=== PATIENT | female | born 1985 | race Caucasian/White ===

== ENCOUNTER → 2018-09-04 14:00 | Outpatient (CLI) | payer OTHER, SELFPAY ==
--- NOTE | 2018-09-04 14:05 | DI.US.S_ITS ---
PROCEDURE: US OB <= 14 WEEKS FETUS INDICATIONS: DATING / INITIAL ULTRASOUND OUTSIDE/PRIOR DATING DATA: Last menstrual period (LMP): 07/15/18. LMP-based estimated date of delivery (MARICHUY): 04/21/19. First dating scan (date and location): 09/04/18. Estimated date of delivery (MARICHUY) from first dating scan: 04/21/19. TECHNIQUE: Real-time scanning was performed of the fetus and maternal pelvic organs, with image documentation. Endovaginal scanning was also performed to better visualize the fetus and maternal ovaries. COMPARISON: None. FINDINGS: Embryo: [place]-rump length measures 12 mm corresponding to 7 weeks 2 days. Embryonic heart rate measures 157 beats per minute. Measurement variability in dating: +/- 4 weeks by LMP, +/- 7 days by mean sac diameter (use before 6 weeks gestation if crown-rump length not able to be measured), +/- 5 days by crown-rump length (up to 8 weeks 6 days gestation), +/- 7 days by crown-rump length (up to 13 weeks 6 days gestation). Maternal organs: Ovaries are within normal limits. Limited images through the kidneys demonstrate no hydronephrosis. IMPRESSION: Seven-week 2 day single living IUP. Dictated by: Buck ARANDA Interpreted: Danielito Dugan MD on 09/04/2018 at 15:36 Approved by: Danielito Dugan M.D. on 09/04/2018 at 16:31
[2018-09-04 14:26] LABS: Add Manual Diff / Slide Review NO; Basophils Absolute Auto 100 /uL (0-100); Eosinophils Absolute Auto 200 /uL (0-450); Eosinophils Percent Auto 1.7 % (2-4); Hematocrit 40.6 % (36-46); Hemoglobin 14.3 g/dL (12.0-16.0); Lymphocytes Absolute Auto 2300 /uL (1100-4500); Lymphocytes Percent Auto 25.6 % (25-40); Mean Corpuscular HGB Conc 35.3 % (30-36); Mean Corpuscular Hemoglobin 29.8 PG (26-34); Mean Corpuscular Volume 84.4 fL (80-100); Monocytes Absolute Auto 600 /uL (0-900); Monocytes Percent Auto 6.5 % (3-14); Neutrophils Absolute Auto 6000 /uL (1500-7000); Neutrophils Percent Auto 65.2 % (50-75); Platelet Count 265 X10^3/uL (150-400); Red Cell Distribution Width 12.5 % (11.6-14.8); White Blood Cell Count 9.1 X10^3/uL (4.5-11.0)
[2018-09-04 15:58] LABS: Appearance Urine UA CLEAR; Bilirubin Urine UA NEGATIVE (NEGATIVE); Color Urine UA YELLOW; Glucose Urine UA NEGATIVE (Negative); Ketones Urine UA NEGATIVE (NEGATIVE); Leukocyte Esterase Urine UA NEGATIVE (NEGATIVE); Nitrite Urine UA NEGATIVE (Negative); Occult Blood Urine UA TRACE-LYSED (Negative); Protein Urine UA NEGATIVE (Negative); Specific Gravity Urine UA 1.025 (1.000-1.035); Urobilinogen Urine UA 0.2 E.U./dL (0.2); pH Urine UA 5.5 (4.5-8.0)
[2018-09-04 16:10] LABS: Hepatitis B Surface Antigen NEGATIVE s/c (NEGATIVE)
[2018-09-04 16:22] LABS: HIV 1 and 2 Antibody NEGATIVE (NEGATIVE); Hep C Virus Ab w/Reflex Quant NEGATIVE s/c (NEGATIVE)
[2018-09-07 05:41] LABS: RPR Screen Nonreactive (Nonreactive)
== END ==
PROVIDERS: Family Provider Family Medicine; PCP Family Medicine; Visit Provider Family Medicine
DX: Z34.01 Encounter for supervision of normal first pregnancy, first trimester (principal); Z3A.01 Less than 8 weeks gestation of pregnancy
CPT/HCPCS: 36415; 76801; 80055; 81003; 86703; 86787; 86803; 86850; 86900; 86901; 87086

== ENCOUNTER → 2018-11-13 15:29 | Outpatient (CLI) | payer OTHER, SELFPAY ==
[2018-11-20 16:30] LABS: AFP, Serum 34.8 ng/mL; Calc Gestational Age 17.3; Cigarette Smoker NOT GIVEN; Donated Egg NOT GIVEN; Donor Egg Age NOT GIVEN; Estriol, Free 0.95 ng/mL; Inhibin A, Dimeric 161 pg/mL; Maternal Ethnicity NOT GIVEN; Maternal Weight 188 lbs; Number of Fetuses NOT GIVEN; Previous Pregnancy Down Syndro NOT GIVEN; hCG, MoM 0.74; hCG, Serum 17.5 IU/mL
== END ==
PROVIDERS: Family Provider Family Medicine; Visit Provider Family Medicine
DX: Z34.02 Encounter for supervision of normal first pregnancy, second trimester (principal); Z3A.17 17 weeks gestation of pregnancy
CPT/HCPCS: 36415; 82105; 82677; 84702; 86336

== ENCOUNTER → 2018-12-03 14:38 | Outpatient (CLI) | payer OTHER, SELFPAY ==
--- NOTE | 2018-12-03 14:39 | DI.US.S_ITS ---
PROCEDURE: US OB >= 14 WEEKS FETUS INDICATIONS: ANATOMY SCREENING OUTSIDE/PRIOR DATING DATA: Last menstrual period (LMP): 07/15/18. LMP-based estimated date of delivery (MARICHUY): 04/21/19. First dating scan (date and location): 09/04/18. Estimated date of delivery (MARICHUY) from first dating scan: 04/21/19. TECHNIQUE: Real-time scanning was performed of the fetus, with image documentation and biometric measurements. Endovaginal scanning: Not requested. COMPARISON: [facility], OB <= 14 WEEKS FETUS, 09/04/2018, 14:57. FINDINGS: General: A single living intrauterine gestation is present. Presentation: Variable. Placenta: Placental position is anterior, without previa. Amniotic fluid index: 13.9 cm, normal range is 5-24 cm. heart rate: 136 beats per minute. Maternal cervical canal: 2.9 cm long. Normal lower limit is 2.5 cm. biometrics: Biparietal diameter: 20 weeks 3 days Head circumference: 20 weeks 1 day Abdominal circumference: 20 weeks 5 days Femur length: 19 weeks 5 days Estimated gestational age from initial scan: 20 weeks 1 day Composite gestational age from present scan: 20 weeks 2 days Estimated weight and percentile: 339 g; 49 percentile Measurement variability for biometric dating: +/- 7 days from 14 weeks to 15 weeks 6 days gestation, +/- 10 days from 16 weeks to 21 weeks 6 days gestation, +/- 2 weeks from 22 weeks to 27 weeks 6 days gestation, +/- 3 weeks for 28 weeks gestation or later. weight reference: 4500 g or EFW >90/95% is considered macrosomia or large for gestational age. EFW <10% is small for gestational age. EFW 5% or less is considered intra-uterine growth restriction. Anatomic survey: Neuro: Ventricles are non-dilated at less than 10 mm. Cisterna magna is normal at 3-11 mm. Cerebellum is normal in size and morphology. Nuchal skin fold: Normal at less than 6 mm between 14-21 weeks gestational age. Face: Nose and lips, facial profile are normal. Spine: No evidence for spina bifida. Heart: 4-chambered heart is present, with normal ventricular outflow tracts. Diaphragm: Diaphragm is intact. Stomach: Left-sided stomach is present. Kidneys: No hydronephrosis. Normal is less than 5 mm in 2nd trimester, less than 7 mm in 3rd trimester. Cord: 3-vessel cord has orthotopic insertion. Bladder: Normal in size. Extremities: All 4 extremities identified. IMPRESSION: 1. Single living IUP redemonstrated and interval growth is normal. 2. Normal anatomic survey. Dictated by: Buck Sevilla [facility] Interpreted: Isaiah Sandy MD on 12/03/2018 at 16:35 Approved by: Isaiah Sandy M.D. on 12/03/2018 at 22:41
== END ==
PROVIDERS: Family Provider Family Medicine; PCP Family Medicine; Visit Provider Family Medicine
DX: Z36.89 Encounter for other specified antenatal screening (principal); Z3A.20 20 weeks gestation of pregnancy
CPT/HCPCS: 76811

== ENCOUNTER → 2018-12-17 11:49 | Outpatient (CLI) | payer OTHER, SELFPAY ==
[2018-12-17 17:41] LABS: Urine N gonorrhoeae NOT DETECTED
[2018-12-17 17:52] LABS: Urine Chlamydia NOT DETECTED
== END ==
PROVIDERS: Family Provider Family Medicine; PCP Family Medicine; Visit Provider Family Medicine
DX: Z11.3 Encounter for screening for infections with a predominantly sexual mode of transmission (principal); Z11.8 Encounter for screening for other infectious and parasitic diseases; Z3A.22 22 weeks gestation of pregnancy
CPT/HCPCS: 87491; 87591

== ENCOUNTER → 2019-01-27 09:47 | Outpatient (CLI) | payer OTHER, SELFPAY ==
[2019-01-27 11:17] LABS: Hematocrit 36.5 % (36-46); Hemoglobin 12.7 g/dL (12.0-16.0)
[2019-01-27 11:38] LABS: GTT (PREG) 1 Hour PP 50gm Dose 111 mg/dL (76-139)
== END ==
PROVIDERS: PCP Family Medicine; Visit Provider Family Medicine
DX: Z34.02 Encounter for supervision of normal first pregnancy, second trimester (principal); Z3A.26 26 weeks gestation of pregnancy
CPT/HCPCS: 82950; 85014; 85018

== ENCOUNTER 2019-03-11 12:15 | Outpatient (CLI) | payer OTHER, SELFPAY ==
[2019-03-11 12:38] LABS: Add Manual Diff / Slide Review NO; Basophils Absolute Auto 100 /uL (0-100); Basophils Percent Auto 0.5 % (0-2); Eosinophils Absolute Auto 100 /uL (0-450); Eosinophils Percent Auto 0.8 % (2-4); Hematocrit 37.5 % (36-46); Hemoglobin 13.2 g/dL (12.0-16.0); Lymphocytes Absolute Auto 2000 /uL (1100-4500); Lymphocytes Percent Auto 15.6 % (25-40); Mean Corpuscular HGB Conc 35.2 % (30-36); Mean Corpuscular Hemoglobin 30.5 PG (26-34); Mean Corpuscular Volume 86.7 fL (80-100); Monocytes Absolute Auto 600 /uL (0-900); Monocytes Percent Auto 4.9 % (3-14); Neutrophils Absolute Auto 10100 /uL (1500-7000); Neutrophils Percent Auto 78.2 % (50-75); Platelet Count 219 X10^3/uL (150-400); Red Blood Cell Count 4.32 X10^6/uL (4.0-5.2); Red Cell Distribution Width 12.9 % (11.6-14.8)
[2019-03-11 12:51] LABS: Alanine Aminotransferase 27 IU/L (9-52); Albumin 3.6 g/dL (3.5-5.0); Albumin Globulin Ratio 1.2 (1.0-2.8); Alkaline Phosphatase 93 U/L (38-126); Aspartate Aminotransferase 18 IU/L (14-36); BUN Creatinine Ratio 12.5 (6-22); Bilirubin Total 0.4 mg/dL (0.2-1.3); Blood Urea Nitrogen 5 mg/dL (7-17); Calcium 9.3 mg/dL (8.4-10.2); Carbon Dioxide 25 mmol/L (22-32); Chloride 104 mmol/L (98-107); Estimated Glomerular Filt Rate > 60.0 mL/min (>60); Globulin 2.9 g/dL (1.7-4.1); Glucose 106 mg/dL (70-100); HEMOLYSIS < 15 (0-50); Potassium 3.8 mmol/L (3.4-5.1); Sodium 136 mmol/L (137-145); Total Protein 6.5 g/dL (6.3-8.2)
--- NOTE | 2019-03-11 16:38 | PM.OBTRLD ---
Visit Information Visit Information Date of evaluation: 03/11/19 Primary OB Provider: Kezia Mi Reason for Evaluation: Yes non-stress test non-stress test reason: hypertension/pre-eclampsia Comments/Additional reasons for admission: Elevated BP in clinic x3, pt denies RAMIREZ, vision changes, abdominal pain or LE edema. Did have coffee prior to appointment. [facility] Medical History Abnormal Pap smear of cervix (Chronic ~09/2008) Human papilloma virus (Chronic ~2007) Family History Grandmother Age: 75 Diabetes mellitus Hypertension RA (rheumatoid arthritis) Mother Age: 53 Hypertension Grandfather No problems noted. Social History Smoking Status: Former smoker Family History Grandmother Age: 75 Diabetes mellitus Hypertension RA (rheumatoid arthritis) Mother Age: 53 Hypertension Grandfather No problems noted. Social History Smoking Status: Former smoker Exam Vital Signs (past 8 hours): Temperature 36.8? blood pressure 118/58 heart rate 74 Objective Labs Result Diagrams: 03/11/19 12:25 03/11/19 12:25 Labs: Laboratory Results - last 24 hr 03/11/19 03/11/19 12:25 12:25 WBC 13.0 H RBC 4.32 Hgb 13.2 Hct 37.5 MCV 86.7 MCH 30.5 MCHC 35.2 RDW 12.9 Plt Count 219 Neut % (Auto) 78.2 H Lymph % (Auto) 15.6 L [place] % (Auto) 4.9 Eos % (Auto) 0.8 L Baso % (Auto) 0.5 Neut # (Auto) 82436 H Lymph # (Auto) 2000 [place] # (Auto) 600 Eos # (Auto) 100 Baso # (Auto) 100 Sodium 136 L Potassium 3.8 Chloride 104 Carbon Dioxide 25 BUN 5 L Creatinine 0.40 L Estimated GFR > 60.0 BUN/Creatinine Ratio 12.5 Glucose 106 H Calcium 9.3 Total Bilirubin 0.4 AST 18 ALT 27 Alkaline Phosphatase 93 Total Protein 6.5 Albumin 3.6 Globulin 2.9 Albumin/Globulin Ratio 1.2 Evaluation Evaluation Baseline heart rate: 120 Variability: Moderate (11-25) monitor accelerations: Present monitor decelerations: Absent Category of Tracing: I Laboratory results: Laboratory Tests 03/11/19 03/11/19 12:25 12:25 WBC 13.0 H RBC 4.32 Hgb 13.2 Hct 37.5 MCV 86.7 MCH 30.5 MCHC 35.2 RDW 12.9 Plt Count 219 Neut % (Auto) 78.2 H Lymph % (Auto) 15.6 L [place] % (Auto) 4.9 Eos % (Auto) 0.8 L Baso % (Auto) 0.5 Neut # (Auto) 33769 H Lymph # (Auto) 2000 [place] # (Auto) 600 Eos # (Auto) 100 Baso # (Auto) 100 Sodium 136 L Potassium 3.8 Chloride 104 Carbon Dioxide 25 BUN 5 L Creatinine 0.40 L Estimated GFR > 60.0 BUN/Creatinine Ratio 12.5 Glucose 106 H Calcium 9.3 Total Bilirubin 0.4 AST 18 ALT 27 Alkaline Phosphatase 93 Total Protein 6.5 Albumin 3.6 Globulin 2.9 Albumin/Globulin Ratio 1.2 Diagnosis, Plan/Disposition Final Diagnosis (1) 34 weeks gestation of : Current Visit: No Status: Acute Plan/Disposition Plan: Blood pressure was normal in the center. NST reactive. Preeclampsia labs normal. Patient will follow up in clinic as scheduled. Return precautions reviewed. OB Disposition: home
== END 2019-03-11 13:16 | disposition home or self-care (01) ==
LOC: OB 03-16 09:29
PROVIDERS: PCP Family Medicine; Visit Provider Family Medicine
DX: O26.893 Other specified pregnancy related conditions, third trimester (principal); R03.0 Elevated blood-pressure reading, without diagnosis of hypertension; Z3A.34 34 weeks gestation of pregnancy
CPT/HCPCS: 59025; 80053; 85025; G0378; G0379

== ENCOUNTER → 2019-03-25 11:04 | Outpatient (CLI) | payer OTHER, SELFPAY ==
[2019-03-26 13:35] LABS: Strep Grp B PCR NEG for Grp B Strep
== END ==
PROVIDERS: PCP Family Medicine; Visit Provider Family Medicine
DX: Z34.90 Encounter for supervision of normal pregnancy, unspecified, unspecified trimester (principal); Z3A.36 36 weeks gestation of pregnancy
CPT/HCPCS: 87653

== ENCOUNTER 2019-04-27 12:12 | Outpatient (CLI) | payer OTHER, SELFPAY ==
--- NOTE | 2019-04-27 14:02 | PM.OBTRLD ---
Visit Information Visit Information Date of evaluation: 04/27/19 Primary OB Provider: Kezia Mi Reason for Evaluation: Yes non-stress test non-stress test reason: other (postdates) Vital Signs Vital Signs: Temperature 36.4? blood pressure 128/79 heart rate 79 PFSH Medical History Abnormal Pap smear of cervix (Chronic ~09/2008) Human papilloma virus (Chronic ~2007) Family History Grandmother Age: 75 Diabetes mellitus Hypertension RA (rheumatoid arthritis) Mother Age: 53 Hypertension Grandfather No problems noted. Social History Smoking Status: Former smoker Family History Grandmother Age: 75 Diabetes mellitus Hypertension RA (rheumatoid arthritis) Mother Age: 53 Hypertension Grandfather No problems noted. Social History Smoking Status: Former smoker Evaluation Evaluation Baseline heart rate: 135 Variability: Moderate (11-25) monitor accelerations: Present monitor decelerations: Absent Uterine Contraction Intensity: Mild Category of Tracing: I Diagnosis, Plan/Disposition Final Diagnosis (1) 40 weeks gestation of : Current Visit: No Status: Acute Plan/Disposition Plan: 33-year-old at 40 weeks and 6 days gestation. NST done for postdates. NST reactive. She is scheduled for induction on 05/04/19 undelivered by then. OB Disposition: home
== END 2019-04-27 13:25 | disposition home or self-care (01) ==
LOC: LABOR 14:28 → OB 04-29 09:07
PROVIDERS: PCP Family Medicine; Visit Provider Family Medicine
DX: O48.0 Post-term pregnancy (principal); Z3A.40 40 weeks gestation of pregnancy
CPT/HCPCS: 59025; G0378; G0379

== ENCOUNTER 2019-04-30 09:40 | Inpatient (IN) | payer OTHER, SELFPAY ==
--- NOTE | 2019-04-30 13:43 | PM.OBHP.1 ---
OB HPI Date/Time Date of admission: 04/30/19 Date Patient Seen: 04/30/19 Time Patient Seen: 13:00 History of Present Condition Chief complaint: LABOR : 1 Para: 0 Estimated Date of Delivery: 04/21/19 Estimated Gestational Age (weeks): 41w2d Narrative: Lizbet Nguyen is a 33 year old at 41 weeks and 2 days. History of Present care: good care, initiated at week # (10), number of visits (15) and pounds weight gain (47) Dating criteria: LMP confirmed by 1st trimester US Ultrasounds: normal 1st trimester US and normal mid trimester US Preadmission Labs Blood type: B (+) positive -: Antibody screen: negative, GBS status: negative, HBsAG: negative, HIV: negative and RPR/VDLR: negative -: Chlamydia screen: not detected and Gonorrhea screen: not detected -: Rubella: immune and Varicella: immune HCT: 40.6 HCAB: negative Quad screen: Normal Urine: Negative 1 hr GTT: 111 Evaluation Evaluation Baseline heart rate: 130 Variability: Moderate (11-25) monitor accelerations: Present monitor decelerations: Absent Uterine Contraction Intensity: Moderate Category of Tracing: I Cervical dilation (cm): 4 Cervical effacement (%): 90 station: -1 [facility] Medical History Abnormal Pap smear of cervix (Chronic ~09/2008) Human papilloma virus (Chronic ~2007) Family History Grandmother Age: 75 Diabetes mellitus Hypertension RA (rheumatoid arthritis) Mother Age: 53 Hypertension Grandfather No problems noted. Social History Smoking Status: Former smoker Family History Grandmother Age: 75 Diabetes mellitus Hypertension RA (rheumatoid arthritis) Mother Age: 53 Hypertension Grandfather No problems noted. Social History Smoking Status: Former smoker Meds Home Medications and Allergies Home Medications Medication Instructions Recorded Confirmed Type prenat.vits,shon,pxz-kzdk-eqied 1 tab PO DAILY 09/23/18 09/23/18 History Allergies Allergy/AdvReac Type Severity Reaction Status Date / Time penicillin G [PENICILLIN G] Allergy Severe SWELLING Unverified 11/05/17 12:26 Review of Systems Constitutional Constitutional: Denies fever(s) and Denies headache(s) ENT Ears, Nose, Mouth, and Throat: No headache(s) Cardiovascular Cardiovascular: Denies chest pain and Denies shortness of breath Respiratory Respiratory: Denies cough and Denies dyspnea Gastrointestinal Gastrointestinal: Denies change in bowel habits, Denies nausea and Denies vomiting Neurologic Neurologic: Denies headache(s) Exam Const General: healthy appearing and comfortable HENMT Head: normal to inspection Ears: hearing grossly normal bilaterally Nose: external nose normal Face and sinus: normal facial exam Mouth: oral mucosae normal Eyes General: appearance normal, both eyes and all related structures Neck Neck: normal visual inspection Resp Effort & Inspection: normal respiratory effort Auscultation: clear to auscultation bilaterally Cardio Rate: regular rate Rhythm: regular rhythm Heart Sounds: no murmurs GI Other: Gravid External Female Exam: external appearance normal Manual OB Exam: dilated 4, effaced (90) and station -1 Presentation: vertex Estimated Weight (lbs): 7 Back/Spine/Pelvis Back: normal to inspection Skin General: no rashes or lesions noted Extrem General: normal to inspection and no pedal edema Assessment and Plan Assessment and Plan Assessment and Plan narrative: 33-year-old at 41 weeks and 2 days in active labor. GBS negative. Plan - Expectant management - Nitrous per protocol, Pitocin per protocol if desired
[2019-04-30 14:27] LABS: Add Manual Diff / Slide Review NO; Basophils Absolute Auto 100 /uL (0-100); Basophils Percent Auto 0.5 % (0-2); Eosinophils Absolute Auto 0 /uL (0-450); Hematocrit 43.2 % (36-46); Hemoglobin 14.9 g/dL (12.0-16.0); Lymphocytes Absolute Auto 1200 /uL (1100-4500); Lymphocytes Percent Auto 5.8 % (25-40); Mean Corpuscular HGB Conc 34.4 % (30-36); Mean Corpuscular Volume 87.2 fL (80-100); Monocytes Absolute Auto 500 /uL (0-900); Monocytes Percent Auto 2.5 % (3-14); Neutrophils Absolute Auto 17900 /uL (1500-7000); Neutrophils Percent Auto 91.2 % (50-75); Platelet Count 244 X10^3/uL (150-400); Red Blood Cell Count 4.95 X10^6/uL (4.0-5.2); Red Cell Distribution Width 14.1 % (11.6-14.8); White Blood Cell Count 19.7 X10^3/uL (4.5-11.0)
--- NOTE | 2019-04-30 17:59 | PM.OBPNLAB ---
Date/Time Date Patient Seen: 04/30/19 Time Patient Seen: 17:41 Pain Control Pain control: tolerating well and epidural Comments: Was having a lot of back pain until she got an epidural, now comfortable. Pelvic Exam Dilation (cm): 6 Effacement (%): 100 station: -1 Amniotic membrane status: Ruptured (AROM blood tinged fluid) Contractions Monitor mode: External Contraction pattern: Regular Contraction intensity: Strong/Firm Status status: Category l Heart Rate Baseline: 130 Monitor Accelerations: Present Monitor Decelerations: Absent Monitor Variability: Moderate Assessment and Plan Assessment: active labor Plan: continuous present management
[2019-04-30] MEDS: ONDANSETRON 4 MG/2 ML INJ IV (18:05)
[2019-04-30] MEDS: LACTATED RINGERS 1,000 ML 100 ML IV ×2 (19:40→20:18)
--- NOTE | 2019-04-30 23:32 | PM.OBPRVD ---
Labor & Delivery Delivery date: 04/30/19 Intrapartal events: None Cervical ripening method: none Induction method: none Delivery augmentation: rupture of membranes Delivery monitor: external FHT Route of delivery: L&D Laceration Description: Vaginal - 2nd Degree Delivery repair: vicryl Estimated blood loss (mL): 250 Anesthesia type: Epidural Narrative: VAGINAL DELIVERY NOTE Date 04/30/19 BRIEF HISTORY: Patient is a 33-year-old at 40+2 weeks who gave on 04/30/19 at 09/16/50. MARICHUY: 04/21/19 Hospital problems: 41 weeks STAGE I: Labor Patient presented to the center in active labor. Contractions began at approximately 5:00 a.m.. Artificial rupture of membranes occurred at 5:37 p.m. with clear fluid. Patient was complete at 8:20 p.m.. She received an epidural with good pain control. heart tones were category 1 throughout stage I. STAGE II: Delivery Spontaneous vaginal delivery occurred at 10:51 p.m.. There was a less than 1 minutes shoulder dystocia relieved with suprapubic pressure. was ILA with the left hand up near the face. There was terminal meconium at delivery. Infant was vigorous at delivery with Apgars of 8 and 9. No resuscitation of the required beyond drying, suctioning and stimulating. heart tones were category 2 throughout stage II due to tachycardia in the 160s and decelerations with pushing. Mother was afebrile throughout stage II without foul smelling amniotic fluid. STAGE III: Placenta/Cord The third stage of labor lasted 10 minutes. Placenta delivered after active management and appeared intact with a three-vessel cord. IM Pitocin given after delivery of placenta. A short second-degree vaginal laceration was repaired in the usual fashion with 4 0 Vicryl. Complications: None. Uterus was firm below umbilicus. EBL: 250 mL. Needle and sponge counts were correct. The vagina was inspected and no items were left in situ. Patient was doing well with Jennifer, her and at bedside. [place] Baby 1: Infant gender: Female Presentation: vertex Placenta delivery description: Spontaneous cord vessel description: 3 Vessels score (1 min): 8 score (5 min): 9
[2019-05-01 00:42] VITALS: BP 138/87
[2019-05-01] MEDS: LANOLIN OINT 7 GM 1 APPLIC TOP (02:01)
[2019-05-01] MEDS: IBUPROFEN 600 MG TABLET PO ×2 (02:02→23:23)
[2019-05-01] MEDS: PRENATAL VIT,CALC/IRON/FOLIC 1 TABLET 1 TAB PO (08:57)
[2019-05-01] MEDS: DOCUSATE 250 MG CAPSULE PO (08:57)
--- NOTE | 2019-05-01 10:45 | P.PNOB_ITS ---
Subjective - OB Subjective Patient comments: no complaints, pain well controlled, tolerating diet and flatus present baby status: doing well and nursing well [place] feeding status: exclusively breast feeding Date Patient Seen: 05/01/19 Time Patient Seen: 10:00 Exam Vital Signs (past 8 hours): Temperature 98.5? blood pressure 136/77 heart rate 87 respirations 16 Narrative Exam Narrative: General: Awake and alert, no acute distress. HEENT: NCAT, EOMI, moist oral mucosa CV: Regular rate and rhythm, no murmurs, rubs or gallops Lungs: CTAB, no wheezes, rales, or rhonchi Abdomen: Soft, nontender; bowel tones active; uterus firm 1 cm below umbilicus Extremities: Warm, 1+ edema bilaterally, 2+ pedal pulses bilaterally Objective Labs Result Diagrams: 04/30/19 14:15 Labs: Laboratory Results - last 24 hr 04/30/19 04/30/19 14:15 14:15 WBC 19.7 H RBC 4.95 Hgb 14.9 Hct 43.2 MCV 87.2 MCH 30.0 MCHC 34.4 RDW 14.1 Plt Count 244 Neut % (Auto) 91.2 H Lymph % (Auto) 5.8 L [place] % (Auto) 2.5 L Eos % (Auto) 0.0 L Baso % (Auto) 0.5 Neut # (Auto) 22307 H Lymph # (Auto) 1200 [place] # (Auto) 500 Eos # (Auto) 0 Baso # (Auto) 100 Blood Type B Positive Antibody Screen Negative Assessment & Plan Assessment and Plan (1) 41 weeks gestation of : Status: Acute Current Visit: Yes (2) Spontaneous vaginal delivery: Status: Acute Current Visit: Yes Plan day: 1 plan OB: routine care Comments: Doing well. Anticipate discharge home tomorrow. Time Spent With Patient Time: Total time spent is greater than 50% in coordination of care (as docum ented) at patient's floor/unit and/or counseling patient: Time with patient: less than 15 minutes
[2019-05-02] MEDS: DOCUSATE 250 MG CAPSULE PO (08:56)
[2019-05-02] MEDS: IBUPROFEN 600 MG TABLET PO (08:56)
[2019-05-02] MEDS: PRENATAL VIT,CALC/IRON/FOLIC 1 TABLET 1 TAB PO (08:56)
[2019-05-02 09:43] VITALS: BP 143/85; PULSE 90; RESP 16; TEMP 36.3
[2019-05-02 09:51] LABS: Add Manual Diff / Slide Review NO; Basophils Absolute Auto 0 /uL (0-100); Basophils Percent Auto 0.3 % (0-2); Eosinophils Absolute Auto 100 /uL (0-450); Hematocrit 38.4 % (36-46); Hemoglobin 12.8 g/dL (12.0-16.0); Lymphocytes Absolute Auto 2200 /uL (1100-4500); Lymphocytes Percent Auto 17.4 % (25-40); Mean Corpuscular HGB Conc 33.4 % (30-36); Mean Corpuscular Hemoglobin 29.4 PG (26-34); Mean Corpuscular Volume 88.1 fL (80-100); Monocytes Absolute Auto 600 /uL (0-900); Monocytes Percent Auto 4.5 % (3-14); Neutrophils Absolute Auto 9900 /uL (1500-7000); Neutrophils Percent Auto 76.8 % (50-75); Platelet Count 202 X10^3/uL (150-400); Red Blood Cell Count 4.37 X10^6/uL (4.0-5.2); Red Cell Distribution Width 14.5 % (11.6-14.8); White Blood Cell Count 12.9 X10^3/uL (4.5-11.0)
[2019-05-02 10:00] LABS: Alanine Aminotransferase 18 IU/L (9-52); Alkaline Phosphatase 101 U/L (38-126); Aspartate Aminotransferase 22 IU/L (14-36); BUN Creatinine Ratio 16.7 (6-22); Bilirubin Total 0.3 mg/dL (0.2-1.3); Blood Urea Nitrogen 10 mg/dL (7-17); Calcium 8.8 mg/dL (8.4-10.2); Carbon Dioxide 28 mmol/L (22-32); Chloride 104 mmol/L (98-107); Estimated Glomerular Filt Rate > 60.0 mL/min (>60); Globulin 2.9 g/dL (1.7-4.1); Glucose 86 mg/dL (70-100); HEMOLYSIS < 15 (0-50); Potassium 4.3 mmol/L (3.4-5.1); Sodium 137 mmol/L (137-145); Total Protein 5.9 g/dL (6.3-8.2)
--- NOTE | 2019-05-02 10:31 | P.DS_ITS ---
Discharge Providers Provider Date of admission: 04/30/19 09:40 Discharge Date: 05/02/19 Primary care physician: Kezia Mi DO Consults: 05/01/19 00:40 Consult to [employer] Routine Comment: Discharge provider: Kezia Mi DO Summary Hospital Course Date Patient Seen: 05/02/19 Time Patient Seen: 10:30 Procedures: Spontaneous vaginal delivery Epidural analgesia Hospital Course: Patient is a 33-year-old G1 now P1 after uncomplicated spontaneous vaginal delivery on 04/30/19 at 41 weeks and 2 days gestation. She presented in active labor and received an epidural with good pain control. Delivery was uncomplicated. A small second-degree vaginal laceration was repaired in the usual fashion. course complicated by mildly elevated blood pressures however patient is completely asymptomatic and preeclampsia labs were normal. was doing well and they were working on breast-feeding. Patient was amb ulating, eating, voiding and passing flatus. Bleeding reportedly light. Counseled patient to call for fevers, bleeding through more than a pad an hour or severe pain. She is also well-versed in symptoms of preeclampsia to watch for (headaches, vision changes, abdominal pain, new edema). She will follow up in clinic in 6 weeks. Peripartum Data Infant Delivery Method: Natural Vaginal Laceration description: Vaginal - 2nd Degree 1: Gender: Female Disposition of : home Discharge Diagnosis (1) 41 weeks gestation of : Status: Acute (2) Spontaneous vaginal delivery: Status: Acute Status at Discharge Cognitive/behavioral status at discharge: at baseline, oriented Overall status at discharge: patient is progressing back to baseline Time Spent with Patient Time attestation: Total time spent providing and/or coordinating discharge services: Time spent: Less than 30 minutes Objective Labs Result Diagrams: 05/02/19 08:24 05/02/19 08:24 Labs: Laboratory Results - last 24 hr 05/02/19 05/02/19 08:24 08:24 WBC 12.9 H RBC 4.37 Hgb 12.8 Hct 38.4 MCV 88.1 MCH 29.4 MCHC 33.4 RDW 14.5 Plt Count 202 Neut % (Auto) 76.8 H Lymph % (Auto) 17.4 L [place] % (Auto) 4.5 Eos % (Auto) 1.0 L Baso % (Auto) 0.3 Neut # (Auto) 9900 H Lymph # (Auto) 2200 [place] # (Auto) 600 Eos # (Auto) 100 Baso # (Auto) 0 Sodium 137 Potassium 4.3 Chloride 104 Carbon Dioxide 28 BUN 10 Creatinine 0.60 Estimated GFR > 60.0 BUN/Creatinine Ratio 16.7 Glucose 86 Calcium 8.8 Total Bilirubin 0.3 AST 22 ALT 18 Alkaline Phosphatase 101 Total Protein 5.9 L Albumin 3.0 L Globulin 2.9 Albumin/Globulin Ratio 1.0 Exam Vital Signs (past 8 hours): - 05/02/19 09:43 Temperature 97.3 F L Pulse Rate 90 Respiratory Rate 16 Blood Pressure 143/85 H Narrative Exam Narrative: General: Awake and alert, no acute distress. HEENT: NCAT, EOMI, moist oral mucosa Abdomen: Soft, nontender; bowel tones active; uterus firm 1 cm below umbilicus Extremities: Warm, no edema, 2+ pedal pulses bilaterally Discharge Plan Discharge Plan Patient Disposition: Home Discharge Med Rec/Prescriptions Prescriptions: New docusate sodium 250 mg Capsule 250 mg PO DAILY Qty: 30 RF: 0 ibuprofen 600 mg Tablet 600 mg PO Q6HR PRN (Reason: Pain, Mild (1-3)) Qty: 30 RF: 0 Continued prenat.vits,shon,rwt-eqsr-plyvc tablet 1 tab PO DAILY RF: 0 Follow up/Referrals: Kezia Mi DO [Primary Care Provider] - 6 Weeks (Call [phone] to schedule your 6 week follow up appointment with Dr. Mi.) Visit Report/Discharge Packet Stand Alone Forms: Discharge: Care Visit Report Forms: Patient Portal/API, Stroke Signs & Symptoms Discharge Data Primary Care Provider: Kezia Mi
== END 2019-05-02 11:35 | disposition home or self-care (01) | DRG 807 ==
PROVIDERS: Admitting Provider Family Medicine; PCP Family Medicine; Visit Provider Family Medicine
DX: O48.0 Post-term pregnancy (principal); Z37.0 Single live birth; Z3A.41 41 weeks gestation of pregnancy; O70.1 Second degree perineal laceration during delivery; O66.0 Obstructed labor due to shoulder dystocia; O77.0 Labor and delivery complicated by meconium in amniotic fluid; O32.6XX0 Maternal care for compound presentation, not applicable or unspecified
CPT/HCPCS: 01967; 36415; 59050; 59400; 80053; 85025; 86850; 86900; 86901; G0379; J2405

== ENCOUNTER → 2020-05-04 12:04 | Outpatient (CLI) | payer OTHER, SELFPAY ==
--- NOTE | 2020-05-04 12:09 | DI.US.S_ITS ---
PROCEDURE: US OB <= 14 WEEKS FETUS INDICATIONS: DATING AND VIABILITY OUTSIDE/PRIOR DATING DATA: Last menstrual period (LMP): 03/07/2020. LMP-based estimated date of delivery (MARICHUY): 12/12/2020 . First dating scan (date and location): 05/04/2020 . Estimated date of delivery (MARICHUY) from first dating scan: 12/13/2020 . TECHNIQUE: Real-time scanning was performed of the fetus and maternal pelvic organs, with image documentation. Endovaginal scanning was also performed to better visualize the fetus and maternal ovaries. COMPARISON: [facility], OB <= 14 WEEKS FETUS, 09/04/2018, 14:57. FINDINGS: Embryo: Strong-rump length measures 1.7 cm corresponding to 8 weeks 1 day. Heart rate measures 162 beats per minute. Measurement variability in dating: +/- 4 weeks by LMP, +/- 7 days by mean sac diameter (use before 6 weeks gestation if crown-rump length not able to be measured), +/- 5 days by crown-rump length (up to 8 weeks 6 days gestation), +/- 7 days by crown-rump length (up to 13 weeks 6 days gestation). Maternal organs: Ovaries within normal limits . Limited images through the kidneys demonstrate no hydronephrosis. IMPRESSION: 8 week 1 day single living IUP. Dictated by: Buck Sevilla [facility] Interpreted: Danielito Dugan MD on 05/04/2020 at 16:43 Approved by: Danielito Dugan M.D. on 05/05/2020 at 9:41
[2020-05-04 12:33] LABS: Add Manual Diff / Slide Review NO; Basophils Absolute Auto 0 /uL (0-100); Basophils Percent Auto 0.6 % (0-2); Eosinophils Absolute Auto 100 /uL (0-450); Eosinophils Percent Auto 1.1 % (2-4); Hematocrit 39.6 % (36-46); Hemoglobin 13.8 g/dL (12.0-16.0); Lymphocytes Absolute Auto 1800 /uL (1100-4500); Monocytes Absolute Auto 500 /uL (0-900); Monocytes Percent Auto 6.1 % (3-14); Neutrophils Absolute Auto 5200 /uL (1500-7000); Neutrophils Percent Auto 68.2 % (50-75); Platelet Count 280 X10^3/uL (150-400); Red Blood Cell Count 4.77 X10^6/uL (4.0-5.2); Red Cell Distribution Width 13.2 % (11.6-14.8); White Blood Cell Count 7.7 X10^3/uL (4.5-11.0)
[2020-05-04 14:57] LABS: Appearance Urine UA CLEAR; Bilirubin Urine UA NEGATIVE (NEGATIVE); Color Urine UA YELLOW; Glucose Urine UA NEGATIVE (Negative); Ketones Urine UA NEGATIVE (NEGATIVE); Leukocyte Esterase Urine UA NEGATIVE (NEGATIVE); Nitrite Urine UA NEGATIVE (Negative); Occult Blood Urine UA NEGATIVE (Negative); Protein Urine UA NEGATIVE (Negative); Specific Gravity Urine UA <=1.005 (1.000-1.035); Urobilinogen Urine UA 0.2 E.U./dL (0.2)
[2020-05-04 15:02] LABS: pH Urine UA 6.5 (4.5-8.0)
[2020-05-04 15:24] LABS: HIV 1 & 2 Ab/Ag 4th Gen Combo NEGATIVE (NEGATIVE); Hep C Virus Ab w/Reflex Quant NEGATIVE s/c (NEGATIVE); Hepatitis B Surface Antigen NEGATIVE s/c (NEGATIVE)
[2020-05-05 06:09] LABS: RPR Screen Non Reactive (Non Reactive)
[2020-05-05 09:11] LABS: Varicella IgG Antibody 665 index (Immune >165)
== END ==
PROVIDERS: PCP Family Medicine; Referring Provider Family Medicine; Visit Provider Family Medicine
DX: Z34.81 Encounter for supervision of other normal pregnancy, first trimester (principal); Z3A.08 8 weeks gestation of pregnancy
CPT/HCPCS: 36415; 76801; 80055; 81003; 86787; 86803; 86850; 86900; 86901; 87077; 87086; 87389

== ENCOUNTER → 2020-06-15 11:35 | Outpatient (CLI) | payer OTHER, SELFPAY | PROVIDERS: PCP Family Medicine; Referring Provider Family Medicine; Visit Provider Family Medicine | DX: O09.512 Supervision of elderly primigravida, second trimester (principal) | CPT/HCPCS: 36415 ==

== ENCOUNTER → 2020-07-13 11:43 | Outpatient (CLI) | payer OTHER, SELFPAY ==
[2020-07-17 11:10] LABS: AFP Value 35.5 ng/mL (.); Gest Age on Col Date 18.3 weeks (.); Gestational Age EDD (.); Insulin Dep Diabetes No (.); OSBR Risk 1IN 10000 (.); Results Report (.); Test Results *Screen Negative* (.)
== END ==
PROVIDERS: PCP Family Medicine; Referring Provider Family Medicine; Visit Provider Family Medicine
DX: Z34.90 Encounter for supervision of normal pregnancy, unspecified, unspecified trimester (principal); Z3A.18 18 weeks gestation of pregnancy
CPT/HCPCS: 36415; 82105

== ENCOUNTER → 2020-08-04 14:34 | Outpatient (CLI) | payer OTHER, SELFPAY ==
--- NOTE | 2020-08-04 14:35 | DI.US.S_ITS ---
PROCEDURE: OB >= 14 WEEKS FETUS INDICATIONS: ANATOMY OUTSIDE/PRIOR DATING DATA: Last menstrual period (LMP): 03/07/2020. LMP-based estimated date of delivery (MARICHUY): 12/12/2020 First dating scan (date and location): 05/04/2020 Estimated date of delivery (MARICHUY) from first dating scan: 12/13/2020 TECHNIQUE: Real-time scanning was performed of the fetus, with image documentation and biometric measurements. Endovaginal scanning: Not performed. COMPARISON: [facility], OB >= 14 WEEKS FETUS, 12/03/2018, 14:57. FINDINGS: General: A single living intrauterine gestation is present. Presentation: Variable Placenta: Placental position is anterior, without previa. Amniotic fluid index: 20.1 cm, normal range is 5-24 cm. heart rate: 157 beats per minute. Maternal cervical canal: 5.8 cm long. Normal lower limit is 2.5 cm. biometrics: Biparietal diameter: 5.3 cm, 22 weeks 2 days Head circumference: 19.4 cm, 21 weeks 5 days Abdominal circumference: 17.6 cm, 22 weeks 3 days Femur length: 3.7 cm, 21 weeks 4 days Estimated gestational age from initial scan: 21 weeks 2 days Composite gestational age from present scan: 22 weeks 0 days Estimated weight and percentile: 472 g, 83rd percentile Measurement variability for biometric dating: +/- 7 days from 14 weeks to 15 weeks 6 days gestation, +/- 10 days from 16 weeks to 21 weeks 6 days gestation, +/- 2 weeks from 22 weeks to 27 weeks 6 days gestation, +/- 3 weeks for 28 weeks gestation or later. weight reference: 4500 g or EFW >90/95% is considered macrosomia or large for gestational age. EFW <10% is small for gestational age. EFW 5% or less is considered intra-uterine growth restriction. Anatomic survey: Neuro: Ventricles are non-dilated at less than 10 mm. Cisterna magna is normal at 3-11 mm. Cerebellum is normal in size and morphology. Nuchal skin fold: Normal at less than 6 mm between 14-21 weeks gestational age. Face: Nose and lips, facial profile are normal. Spine: No evidence for spina bifida. Heart: 4-chambered heart is present, with normal ventricular outflow tracts. Diaphragm: Diaphragm is intact. Stomach: Left-sided stomach is present. Kidneys: No hydronephrosis. Normal is less than 5 mm in 2nd trimester, less than 7 mm in 3rd trimester. Cord: 3-vessel cord has orthotopic insertion. Bladder: Normal in size. Extremities: All 4 extremities identified. IMPRESSION: Single live intrauterine with appropriate interval growth. anatomic survey within normal limits. Dictated by: Denys Salvador M.D. on 08/04/2020 at 16:03 Approved by: Denys Salvador M.D. on 08/04/2020 at 16:10
== END ==
PROVIDERS: PCP Family Medicine; Referring Provider Family Medicine; Visit Provider Family Medicine
DX: Z36.89 Encounter for other specified antenatal screening (principal); Z3A.22 22 weeks gestation of pregnancy
CPT/HCPCS: 76811

== ENCOUNTER → 2020-09-14 10:36 | Outpatient (CLI) | payer OTHER, SELFPAY ==
[2020-09-14 13:06] LABS: Hematocrit 37.2 % (36-46); Hemoglobin 12.7 g/dL (12.0-16.0)
[2020-09-14 13:23] LABS: GTT (PREG) 1 Hour PP 50gm Dose 133 mg/dL (76-139)
== END ==
PROVIDERS: PCP Family Medicine; Referring Provider Family Medicine; Visit Provider Family Medicine
DX: Z34.90 Encounter for supervision of normal pregnancy, unspecified, unspecified trimester (principal); Z3A.26 26 weeks gestation of pregnancy
CPT/HCPCS: 36415; 82950; 85014; 85018

== ENCOUNTER → 2020-11-17 10:09 | Outpatient (CLI) | payer OTHER, SELFPAY ==
[2020-11-18 09:34] LABS: Strep Grp B PCR NEG for Grp B Strep
== END ==
PROVIDERS: PCP Family Medicine; Visit Provider Family Medicine
DX: Z34.90 Encounter for supervision of normal pregnancy, unspecified, unspecified trimester (principal); Z3A.36 36 weeks gestation of pregnancy
CPT/HCPCS: 87653

== ENCOUNTER 2020-12-14 11:41 | Outpatient (CLI) | payer OTHER, SELFPAY ==
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
== END 2020-12-14 12:45 | disposition home or self-care (01) ==
LOC: LABOR 11:59 → OB 12-15 07:11
PROVIDERS: PCP Family Medicine; Referring Provider Family Medicine; Visit Provider Family Medicine
DX: O48.0 Post-term pregnancy (principal); O09.523 Supervision of elderly multigravida, third trimester; Z3A.40 40 weeks gestation of pregnancy
CPT/HCPCS: 59050; G0378; G0379

== ENCOUNTER 2020-12-18 19:37 | Inpatient (IN) | payer OTHER, SELFPAY ==
[2020-12-19 00:10] LABS: Add Manual Diff / Slide Review NO; Basophils Absolute Auto 0 /uL (0-100); Basophils Percent Auto 0.4 % (0-2); Eosinophils Absolute Auto 100 /uL (0-450); Hematocrit 38.6 % (36-46); Lymphocytes Absolute Auto 2500 /uL (1100-4500); Lymphocytes Percent Auto 20.4 % (25-40); Mean Corpuscular HGB Conc 33.7 % (30-36); Mean Corpuscular Hemoglobin 28.5 PG (26-34); Mean Corpuscular Volume 84.6 fL (80-100); Monocytes Absolute Auto 700 /uL (0-900); Neutrophils Absolute Auto 8700 /uL (1500-7000); Neutrophils Percent Auto 72.2 % (50-75); Platelet Count 214 X10^3/uL (150-400); Red Blood Cell Count 4.57 X10^6/uL (4.0-5.2); Red Cell Distribution Width 14.5 % (11.6-14.8); White Blood Cell Count 12.1 X10^3/uL (4.5-11.0)
[2020-12-19 00:52] LABS: COVID19 - ADMIT (NP swab/PCR) Negative (Negative)
[2020-12-19 07:12] VITALS: BP 112/58
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
[2020-12-19] MEDS: LACTATED RINGERS 1,000 ML 100 ML IV (10:25)
[2020-12-19] MEDS: OXYTOCIN PREMIX 30 UNIT/500 ML PLAST..BAG IV (10:26)
--- NOTE | 2020-12-19 12:55 | PM.OBPNLAB ---
Date/Time Date Patient Seen: 12/19/20 Time Patient Seen: 12:45 Pain Control Pain control: tolerating well Comments: Feeling contractions more but no longer in her back. Wants an epidural eventually but not yet. Pelvic Exam Dilation (cm): 5 Effacement (%): 75 station: -3 Amniotic membrane status: Intact Contractions Pitocin rate (mU/min): 9 Contraction frequency (min): 2 Contraction pattern: Regular Contraction intensity: Moderate Status status: Category l Heart Rate Baseline: 130 Monitor Accelerations: Present Monitor Decelerations: Absent Monitor Variability: Moderate Assessment and Plan Assessment: induction ongoing Plan: continuous present management Comments: Continue pitocin. Will consider AROM if head is lower next check.
--- NOTE | 2020-12-19 18:15 | PM.OBPNLAB ---
Date/Time Date Patient Seen: 12/19/20 Time Patient Seen: 18:05 Pain Control Pain control: tolerating well and epidural Pelvic Exam Dilation (cm): 7 Effacement (%): 80 station: -2 Amniotic membrane status: Ruptured (Copious clear fluid) Contractions Pitocin rate (mU/min): 15 Contraction frequency (min): 3 Contraction pattern: Regular Contraction intensity: Strong/Firm Status status: Category l Heart Rate Baseline: 120 Monitor Accelerations: Present Monitor Decelerations: Absent Monitor Variability: Moderate Assessment and Plan Assessment: active labor Plan: continuous present management
--- NOTE | 2020-12-19 21:15 | PM.OBPNLAB ---
Date/Time Date Patient Seen: 12/19/20 Time Patient Seen: 21:10 Pain Control Pain control: tolerating well and epidural Pelvic Exam Dilation (cm): 10 Effacement (%): 100 station: 0 Amniotic membrane status: Ruptured (Copious clear fluid) Contractions Pitocin rate (mU/min): 17 Contraction frequency (min): 3 Contraction pattern: Regular Contraction intensity: Strong/Firm Status status: Category l Heart Rate Baseline: 120 Monitor Accelerations: Present Monitor Decelerations: Variable Monitor Variability: Moderate Assessment and Plan Assessment: active labor Plan: continuous present management Comments: Begin pushing
--- NOTE | 2020-12-19 23:31 | PM.OBPRVD ---
Labor & Delivery Narrative: Consulted due to nonreassuring heart tones in the setting of complete cervical dilation with the pt currently pushing. Pt with recurrent late and variable decels, with progressively slower return to baseline.
--- NOTE | 2020-12-19 23:53 | PM.OBPRVD ---
Labor & Delivery Delivery date: 12/19/20 Cervical ripening method: per Cervidil protocol Induction method: per pitocin protocol Delivery augmentation: rupture of membranes Delivery monitor: external FHT Route of delivery: Indication for instrumentation: nonreassuring FHR tracing L&D Laceration Description: Perineal - 2nd Degree Delivery repair: vicryl Estimated blood loss (mL): 350 Anesthesia Type: Epidural Narrative: VAGINAL DELIVERY NOTE Date 12/19/20 BRIEF HISTORY: Patient is a 35-year-old at 41 weeks who gave on 12/19/20 at 23:25. MARICHUY: 12/12/20 Hospital problems: 41 weeks of Epidural analgesia STAGE I: Labor Patient reason Cervidil for ripening followed by Pitocin per protocol. Patient received an epidural with adequate pain control. Artificial rupture membranes occurred at 6:10 p.m. with copious clear fluid. She was complete at 8:40 p.m.. heart tones were category 1 and 2 throughout stage I due to intermittent variable decelerations. Stage I duration 10 hours 35 minutes. STAGE II: Delivery Patient was complete and began pushing at 9:00 PM. FHT were category 2 due to late and variable decelerations with pushing. There was improvement temporarily with with resuscitative measures (oxygen and fluid bolus) however decelerations became recurrent. Dr. Esparza as consulted for possible vacuum delivery verses section for nonreassuring heart tones and maternal exhaustion. After discussion of risks and benefits, patient elected to try a vacuum. Dr. Esparza applied the kiwi vacuum. delivered after four pulls and one pop off. Infant was direct OP and rotated to direct FEMI at +3 station. A nuchal cord was reduced after delivery. Please see Dr. Esparza's note. He was immediately placed on mother's abdomen. Cord was clamped and cut after 1 minute delay. Apgars were 8 and 9 at 1 and 5 minutes respectively. No resuscitation of the required beyond drying and stimulating. Stage 2 duration 2 hours and 45 minutes. STAGE III: Placenta/Cord Placenta delivered at 23:30 after active management and appeared intact with a three-vessel cord. Uterus was firm below umbilicus after delivery of placenta. A short second-degree vaginal and perineal laceration was repaired in the usual fashion with 4 0 Vicryl. Hemostasis achieved. Uterus was firm below umbilicus after repair. EBL: 350 mL. Needle and sponge counts were correct. The vagina was inspected and no items were left in situ. Patient was doing well with Renard, her and at bedside. [place] Baby 1: Infant gender: Male Presentation: vertex Placenta delivery description: Spontaneous Cord Vessel Description: 3 Vessels and Nuchal Cord score (1 min): 8 score (5 min): 9 Plan for aftercare: Routine care
[2020-12-20] MEDS: IBUPROFEN 600 MG TABLET PO (03:29)
--- NOTE | 2020-12-20 05:25 | P.PNOB_ITS ---
Assessment and Plan Comments: Consulted by Dr Mi due to nonreassuring heart tones in the setting of complete cervical dilation with the pt currently pushing. The infant was noted to likely be in OP position. Pt with recurrent late and variable decels, with progressively slower return to baseline. The decision was made to proceed with vacuum-assisted vaginal delivery. Patient was evaluated and noted to have adequate pain control. Patient counseled on risks/benefits/alternatives of vacuum assisted delivery. Risks were discussed and they included but were not limited to a need for an episiotomy, pressure sampson on the baby, lacerations to the baby's scalp/face, serious damage including skull fracture, the need to proceed with an abdominal procedure, , paralysis of the baby's arms and/or legs, neurological impairment of the baby. Alternatives would include CS or further observation depending on status. Questions were answered and the patient verbalized an understanding and decided to proceed. Vacuum cup of the Kiwi OmniCup applied to the flexion point without difficulty and during contractions, pressure applied between 400-600 mmHg as indicated in the green zone of the pressure gauge. delivered after 4 pulls with 1 pop-off over an intact perineum. The was noted to turn from direct OP position to FEMI when at +3 station, and the head then descended rapidly. The anterior shoulder and remainder of the was delivered without difficulty. There was a nuchal cord that was redu jc after delivery. Infant was examined and no evidence of significant injury noted. The remainder of the delivery was attended to by Dr Mi.
[2020-12-20 08:17] LABS: Hematocrit 39.4 % (36-46); Hemoglobin 13.3 g/dL (12.0-16.0)
--- NOTE | 2020-12-20 12:23 | P.PNOB_ITS ---
Subjective - OB Subjective Patient comments: no complaints, pain well controlled, tolerating diet and flatus present baby status: doing well and nursing well [place] feeding status: exclusively breast feeding Date Patient Seen: 12/20/20 Time Patient Seen: 12:23 Interval history: Doing well, no complaints. She has gotten up and voided without difficulty. Bleeding is moderate to light. Denies perineal pain. Tolerating a diet. Breast-feeding initiated in though she would like support. Exam Vital Signs (past 8 hours): Temperature 98.0? blood pressure 118/67 heart rate 87 Narrative Exam Narrative: General: Awake and alert, no acute distress. HEENT: NCAT, EOMI, moist oral mucosa CV: Regular rate and rhythm, no murmurs, rubs or gallops Lungs: CTAB, no wheezes, rales, or rhonchi Abdomen: Soft, nontender; bowel tones active; uterus firm 1 cm below umbilicus Extremities: Warm, no edema Objective Labs Result Diagrams: 12/20/20 08:10 Labs: Laboratory Results - last 24 hr 12/20/20 08:10 Hgb 13.3 Hct 39.4 Assessment & Plan Assessment and Plan (1) Vacuum-assisted vaginal delivery: Status: Acute (2) 41 weeks gestation of : Status: Acute Plan day: 1 plan OB: routine care Comments: Requested support. Time Spent With Patient Time: Total time spent is greater than 50% in coordination of care (as documented) at patient's floor/unit and/or counseling patient: Time with patient: less than 15 minutes
--- NOTE | 2020-12-21 08:12 | PM.OBDS.1 ---
Discharge Providers Provider Date of admission: 12/18/20 19:37 Discharge Date: 12/21/20 Primary care physician: Kezia Mi DO Consults: 12/20/20 23:57 Consult to Senior Landscape Architect Routine Comment: Discharge provider: Kezia Mi DO Summary Hospital Course Date Patient Seen: 12/21/20 Time Patient Seen: 08:13 Diagnoses: 41 weeks of Vacuum assisted vaginal delivery Epidural analgesia Hospital Course: 35-year-old now 2 after vacuum assisted vaginal delivery on 12/19/20 for nonreassuring heart tones. Patient came in for post-dates induction. She received Cervidil followed by Pitocin and AROM. She went on to receive an epidural. Dr. Esparza was consult to during the second stage due to recurrent late decelerations. The vacuum was applied and infant successfully delivered. Apgars were 7 and 9 and both patient and mother did well after delivery. A small second-degree laceration was repaired with good hemostasis. course uncomplicated. Patient was ambulating, voiding and passing flatus. Tolerating a diet and . Bleeding was moderate to light. Pain controlled with minimal ibuprofen. She and were seen by as well. Advised patient to call for fevers, severe pain or bleeding through more than a pad an hour. She will follow-up in clinic in 6 weeks. Peripartum Data Infant Delivery Method: Assisted Delivery (Vacuum for nonreassuring heart tones) Laceration Description: Vaginal - 2nd Degree complications: none [place] 1: Gender: Male Disposition of : home Discharge Diagnosis (1) Vacuum-assisted vaginal delivery: Status: Acute (2) 41 weeks gestation of : Status: Acute Time Spent with Patient Time attestation: Total time spent providing and/or coordinating discharge services: Objective Labs Result Diagrams: 12/20/20 08:10 Labs: Laboratory Results - last 24 hr 12/20/20 08:10 Hgb 13.3 Hct 39.4 Exam Vital Signs (past 8 hours): Temperature 98.1? blood pressure 119/69 heart rate 91 respirations 18 Narrative Exam Narrative: General: Awake and alert, no acute distress. HEENT: NCAT, EOMI, moist oral mucosa CV: Regular rate and rhythm, no murmurs, rubs or gallops Lungs: CTAB, no wheezes, rales, or rhonchi Abdomen: Soft, nontender; bowel tones active; uterus firm 1 cm below umbilicus Extremities: Warm, 1+ edema bilaterally, 2+ pedal pulses bilaterally Discharge Plan Discharge Plan Patient Disposition: Home Discharge orders & Medications Prescriptions: Continued prenat.vits,shon,[id number] Tablet 1 tab PO DAILY RF: 0 Discontinued pyridoxine (vitamin B6) 25 mg tablet 25 mg PO .PRN RF: 0 Follow up/Referrals: Kezia Mi DO [Primary Care Provider] - 6 Weeks Visit Report/Discharge Packet Visit Report Forms: Patient Portal/API, Stroke Signs & Symptoms Discharge Data Primary Care Provider: Kezia Mi
[2020-12-21] MEDS: DOCUSATE 100 MG CAPSULE PO (09:35)
[2020-12-21] MEDS: PRENATAL VIT,CALC/IRON/FOLIC 1 TABLET 1 TAB PO (09:36)
[2020-12-21 09:57] VITALS: BP 121/71; PULSE 77; RESP 18; TEMP 36.8
== END 2020-12-21 11:10 | disposition home or self-care (01) | DRG 807 ==
PROVIDERS: Admitting Provider Family Medicine; PCP Family Medicine; Referring Provider Family Medicine; Visit Provider Family Medicine
DX: O48.0 Post-term pregnancy (principal); Z37.0 Single live birth; Z3A.41 41 weeks gestation of pregnancy; O70.1 Second degree perineal laceration during delivery; O69.1XX0 Labor and delivery complicated by cord around neck, with compression, not applicable or unspecified; O76 Abnormality in fetal heart rate and rhythm complicating labor and delivery
CPT/HCPCS: 01967; 36415; 59050; 59400; 85014; 85018; 85025; 86850; 86900; 86901; 87635; C9803; G0379; J2590

== ENCOUNTER → 2025-01-22 09:27 | Outpatient (CLI) | payer OTHER, SELFPAY ==
--- NOTE | 2025-01-22 09:28 | DI.MG.S_ITS ---
MM screening mammo BI: 01/22/2025. BI-RADS: 1 CLINICAL: 39-year old female for bilateral screening mammogram. Tyrer-Cuzick lifetime risk of 24.4%. Current reported family history of breast cancer: mother. PRIOR EXAMS No prior examinations available. MAMMOGRAPHY TECHNIQUE: 2D and 3D (tomosynthesis) digital mammographic views obtained, with additional images as needed for full coverage. Current study was also evaluated with a Computer Aided Detection (CAD) system. DENSITY C. The breasts are heterogeneously dense, which may obscure small masses. MAMMOGRAPHY FINDINGS Bilateral: No suspicious mass, asymmetry, microcalcification, or other abnormality seen. IMPRESSION: * No evidence of malignancy. RECOMMENDATIONS Bilateral * According to the Tyrer-Cuzick Risk Assessment Model, based on the information provided your patient has a greater than 20% lifetime risk for developing breast cancer. Consider supplemental screening with breast MRI and participation in a high risk screening program. * Annual screening mammography. OVERALL ASSESSMENT CATEGORY BI-RADS-1: Negative. The [employer] recommends annual screening mammography beginning at age 40 for women with average risk of breast cancer. ELECTRONICALLY SIGNED: Jean Paul You M.D. on 01/24/2025 at 07:24:22 AM PT Interpreting Station ID: [id number]
== END ==
PROVIDERS: PCP Family Medicine; Referring Provider Family Medicine; Visit Provider Family Medicine
DX: Z12.31 Encounter for screening mammogram for malignant neoplasm of breast (principal); R92.333 Mammographic heterogeneous density, bilateral breasts; Z80.3 Family history of malignant neoplasm of breast
CPT/HCPCS: 77063; 77067